=== PATIENT | male | born 1960 | race Two or more races ===

== ENCOUNTER 2024-04-20 10:01 | Outpatient (AMB) | payer MEDICAID, SELFPAY ==
--- NOTE | 2024-04-20 10:55 | A.OFFVIS_ITS ---
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
== END 2024-04-20 11:49 | disposition home or self-care (01) ==
PROVIDERS: PCP Registered Nurse; Visit Provider Urology
DX: Z13.9 Encounter for screening, unspecified (principal)

== ENCOUNTER → 2024-04-20 10:01 | Outpatient (BNVA) | payer MEDICAID, SELFPAY | PROVIDERS: PCP Registered Nurse; Visit Provider Urology | DX: N43.3 Hydrocele, unspecified (principal) | CPT/HCPCS: 81003; 99202 ==

== ENCOUNTER 2024-06-14 08:07 | Day surgery (SDC) | payer MEDICAID, SELFPAY ==
[2024-06-10 09:48] VITALS: BMI 21.1
--- NOTE | 2024-06-11 10:07 | HO.ANESPROP2 ---
HPI - Anesthesia Eval Consult details Narrative: 63yo M for Bilateral Hydrocele Repair, Excision Penial Cyst PMFSH Active Problems Active Problems: All Active Problems Hydrocele in adult (Acute) Past Medical History Medical History (Updated 04/22/24 @ 22:07 by Lalo Farias MD) Depression with anxiety Heroin use disorder, mild, in sustained remission Chronic low back pain Recurrent major depressive disorder Chronic pain in testicle Surgical History Surgical History (Updated 06/10/24 @ 09:48 by Jaan Herrera RN) Surgical history unknown Meds Allergies Allergy/AdvReac Type Severity Reaction Status Date / Time No Known Allergies Allergy Verified 04/20/24 10:55 Home Medications ?Medication ?Instructions ?Recorded ?Confirmed ?Last Taken ?Type albuterol sulfate 90 mcg/actuation 2 puff inhalation Q4H PRN dyspnea 04/14/24 06/10/24 Unknown History aerosol inhaler (Ventolin HFA) budesonide-formoterol HFA 80 2 puff inhalation DAILY 04/14/24 06/10/24 Unknown History mcg-4.5 mcg/actuation aerosol inhaler (Symbicort) cetirizine 10 mg tablet 10 mg PO DAILY 04/14/24 06/10/24 Unknown History cyclobenzaprine 10 mg tablet 10 mg PO TID PRN muscle spasm 04/14/24 06/10/24 Unknown History duloxetine 30 mg capsule,delayed 30 mg PO DAILY 04/14/24 06/10/24 Unknown History release montelukast 10 mg tablet 10 mg PO BEDTIME 04/14/24 06/10/24 Unknown History multivitamin 1 tab PO DAILY 04/14/24 06/10/24 Unknown History trazodone 150 mg tablet 150 mg PO BEDTIME 04/14/24 06/10/24 Unknown History Exam Height,Weight and Vital Signs: Height 5 ft 9 in Weight 64.864 kg Assessment and Plan Assessment Anesthesia Assessment: Chart Reviewed
--- NOTE | 2024-06-14 08:32 | HO.ANESPROP2 ---
[facility] Active Problems Active Problems: All Active Problems Hydrocele in adult (Acute) Past Medical History Medical History Depression with anxiety Heroin use disorder, mild, in sustained remission Chronic low back pain Recurrent major depressive disorder Chronic pain in testicle Functional capacity: independent ambulation Surgical History Surgical History Surgical history unknown Social History Social History Advance Directives: No Advance Directives Information Provided: Yes Meds Allergies Allergy/AdvReac Type Severity Reaction Status Date / Time No Known Allergies Allergy Verified 04/20/24 10:55 Active Medications: Current Medications Lactated Ringer's (Lr) 1,000 mls @ 100 mls/hr IVCONT .Q10H SAMANTHA Home Medications ?Medication ?Instructions ?Recorded ?Confirmed ?Last Taken ?Type albuterol sulfate 90 mcg/actuation 2 puff inhalation Q4H PRN dyspnea 04/14/24 06/10/24 Unknown History aerosol inhaler (Ventolin HFA) budesonide-formoterol HFA 80 2 puff inhalation DAILY 04/14/24 06/10/24 Unknown History mcg-4.5 mcg/actuation aerosol inhaler (Symbicort) cetirizine 10 mg tablet 10 mg PO DAILY 04/14/24 06/10/24 Unknown History cyclobenzaprine 10 mg tablet 10 mg PO TID PRN muscle spasm 04/14/24 06/10/24 Unknown History duloxetine 30 mg capsule,delayed 30 mg PO DAILY 04/14/24 06/10/24 Unknown History release montelukast 10 mg tablet 10 mg PO BEDTIME 04/14/24 06/10/24 Unknown History multivitamin 1 tab PO DAILY 04/14/24 06/10/24 Unknown History trazodone 150 mg tablet 150 mg PO BEDTIME 04/14/24 06/10/24 Unknown History Exam Height,Weight and Vital Signs: Height 5 ft 9 in Weight 64.864 kg
--- NOTE | 2024-06-14 08:37 | HO.ANESPROP2 ---
[facility] Active Problems Active Problems: All Active Problems Hydrocele in adult (Acute) Past Medical History Medical History Depression with anxiety Heroin use disorder, mild, in sustained remission Chronic low back pain Recurrent major depressive disorder Chronic pain in testicle Functional capacity: independent ambulation Family History Family history of problems with anesthesia: No Surgical History Surgical History Surgical history unknown History of Problems with Anesthesia: Unobtainable Social History Social History Household Members Other:: I live in a room in a house Are you a primary critical care specialist to a significant other at home: No Do you presently have visiting nurse or other home services: No Patient Tobacco Use Status: Former Tobacco user Meds Allergies Allergy/AdvReac Type Severity Reaction Status Date / Time No Known Allergies Allergy Verified 04/20/24 10:55 Active Medications: Current Medications Lactated Ringer's (Lr) 1,000 mls @ 100 mls/hr IVCONT .Q10H SAMANTHA Home Medications ?Medication ?Instructions ?Recorded ?Confirmed ?Last Taken ?Type albuterol sulfate 90 mcg/actuation 2 puff inhalation Q4H PRN dyspnea 04/14/24 06/10/24 Unknown History aerosol inhaler (Ventolin HFA) budesonide-formoterol HFA 80 2 puff inhalation DAILY 04/14/24 06/10/24 Unknown History mcg-4.5 mcg/actuation aerosol inhaler (Symbicort) cetirizine 10 mg tablet 10 mg PO DAILY 04/14/24 06/10/24 Unknown History cyclobenzaprine 10 mg tablet 10 mg PO TID PRN muscle spasm 04/14/24 06/10/24 Unknown History duloxetine 30 mg capsule,delayed 30 mg PO DAILY 04/14/24 06/10/24 Unknown History release montelukast 10 mg tablet 10 mg PO BEDTIME 04/14/24 06/10/24 Unknown History multivitamin 1 tab PO DAILY 04/14/24 06/10/24 Unknown History trazodone 150 mg tablet 150 mg PO BEDTIME 04/14/24 06/10/24 Unknown History Exam Height,Weight and Vital Signs: Height 5 ft 9 in Weight 64.864 kg Airway Mallampati Class: II TM Dist: >3cm Neck ROM: Full Denture: Upper and Lower Heart: RRR Lungs: CTA Assessment and Plan Assessment Anesthesia Assessment: Anesthesia Plan Discussed and Chart Reviewed Final Anesthetic Review Family History of Problems with Anesthesia: No History of Problems with Anesthesia: Unobtainable NPO: Yes ASA Class: II Final Preanesthetic Review: Meds/Allgs Chart Reviewed, Consent Obtained/Reviewed and Anes Risks/Benef Reviewed Patient Risk: Intermediate Procedure Risk: Intermediate Anesthetic Plan Anesthetic Plan: GA Disposition: Standard PACU
[2024-06-14 08:45] LABS: Amphetamine Screen Urine Not Detected (Not Detect); Barbiturates, Urine Not Detected (Not Detect); Benzodiazepines Screen Urine Not Detected (Not Detect); Buprenorphine Scr Not Detected (Not Detect); Cannabinoid Screen Urine Not Detected (Not Detect); Cocaine Screen Urine Not Detected (Not Detect); Fentanyl, urine Not Detected (Not Detect); Methadone Screen, Urine Not Detected (Not Detect); Opiate Screen Urine Not Detected (Not Detect); Oxycodone Screen Urine Not Detected (Not Detect); Phencyclidine Screen Urine Not Detected (Not Detect)
[2024-06-14 08:50] VITALS: BMI 20.4
[2024-06-14 08:56] LABS: Appearance Urine Hazy; Color Urine DK YELLOW; Leukocyte Esterase Urine Negative (Negative); PH 5.5 (5.0-9.0); Specific Gravity - Urine 1.025 (1.005-1.025); UMIC TRIGGER UA YES; Urine Blood Moderate (2+) (Negative); Urine Protein 30 (1+) mg/dL (Neg-Trace)
[2024-06-14] MEDS: Lactated Ringers 1,000 ML 100 ML IVCONT (08:58)
[2024-06-14 09:06] VITALS: BP 126/77; PULSE 87; RESP 18; TEMP 36.6; O2SAT 96
[2024-06-14 09:14] LABS: Bacteria Urine None Seen (None Seen); Squamous Epithelial Cell Urine 0-2 /HPF (0-2); WBC Urine 0-5 /HPF (0-5)
[2024-06-14 09:15] LABS: Hyaline Casts Urine 0-2 /LPF (0-2)
--- NOTE | 2024-06-14 09:40 | MHC.SHP ---
Pre-Procedural Eval Section A - 24 Hr Update-Section A only Date of Service: 06/14/24 The patient is an INPATIENT: No Changes since office visit: No Cold of Flu in the past 2 weeks, No New Medical Problems, No Changes in Medication and No Patient answered all questions The patient has been examined within 24 hours of the surgical procedure. The History & Physical has been completed within 30 days and I have reviewed it.: No Section B - Complete if H&P > 30 days Chief Complaint: Benign cyst of prepuce,hydocele repair Details of Present Illness: Bilateral hydroceles, benign cyst of penile foreskin Relevant Social History: None Present Medications: see Short Stay Collaborative assessment Medical History: No relevant PMH History of Previous Operations: No relevant previous surgery Allergies: Allergies Allergy/AdvReac Type Severity Reaction Status Date / Time No Known Allergies Allergy Verified 04/20/24 10:55 Review of Systems Sugical H&P ROS: Negative: Constitution, Cardiovascular, Respiratory, Neurological, Psychiatric, Hem-Onc, Allergic/Immunologic, Gastrointestinal, Genitourinary, Musculoskeletal, Integumentary, Endocrine and Eyes/Ears/Nose/Throat Exam Surgical H&P Exam: Normal: HEENT, Normal: Heart, Normal: Lungs, Normal: Extremities, Normal: Abdomen, Normal: Skin and Normal: Neurological Plan Diagnosis/Plan: Unchanged (bilateral hydroceles) I have reviewed the history and physical and performed a pertinent physical examination on my patient. No changes have occurred unless specified. Time Spent With Patient Time: Total time managing care of this patient today ____ minutes.
--- NOTE | 2024-06-14 10:48 | W.PM.OPN ---
Operative Note Operative Note Date of Service: 06/14/24 Narrative: PreOperative Diagnosis: Bilateral hydrocele with prepuce penile cyst Post Operative Diagnosis: Above Procedure: Bilateral Hydrocelectomy and removal of foreskin penile cyst Surgeon: Dr Lalo Farias Anesthesia: General Indications for procedure: Bilateral hydrocele with persistent discomfort. Foreskin penile cyst with difficulty retracting Procedure: After informed consent was verified the patient was brought to the operating room and placed in a supine position. Anesthesia was administered per protocol. Patient was appropriately shaved and genitals were prepped and draped in sterile fashion. Safety pause time-out was performed. Antibiotics being given. Local anesthetic was infiltrated under the skin in a vertical fashion on the median raphe of the scrotum. Bilateral testicular block performed. Skin incision was made using a blade through the subdermal layer. Using Allis clamps dissection was performed to the level of the tunica of the left testicle. The tunica around the testicle was elevated and dissected free from surrounding tissue. The avascular plane around the tunica was entered and using a wet sponge blunt dissection was performed. Any small bleeding perforators were cauterized. 3-0 Vicryl was used to create stay sutures and elevate the tunica. The tunica was opened in a longitudinal fashion.. Fluid was removed with suction proximally 200 cc. The testicle sac was elevated. Excess thickened sac was dissected and removed using a LigaSure cautery instrument to minimize porst procedure bleeding. Skin edges of the tunica were cauterized carefully in order to try to minimize postprocedure hematoma. Small accessory appendices were removed from the head of epididymis. The testicle with resected sac was placed back into a dependent portion of the scrotum. Overlying skin fascia layer was closed with a running 3-0 Vicryl suture. Using Allis clamps dissection was performed to the level of the tunica of the right testicle. The tunica around the testicle was elevated and dissected free from surrounding tissue. The avascular plane around the tunica was entered and using a wet sponge blunt dissection was performed. Any small bleeding perforators were cauterized. 3-0 Vicryl was used to create stay sutures and elevate the tunica. The tunica was opened in a longitudinal fashion.. Fluid was removed with suction proximally 200 cc. The testicle sac was elevated. Excess thickened sac was dissected and removed using a LigaSure cautery instrument to minimize porst procedure bleeding. Skin edges of the tunica were cauterized carefully in order to try to minimize postprocedure hematoma. The testicle with resected sac was placed back into a dependent portion of the scrotum. Overlying skin fascia layer was closed with a running 3-0 Vicryl suture. Skin was closed with interrupted 3-0 chromic sutures. Attention was directed to the prepuce of the penis. A 1.5 cm subdermal cyst was present on the left edge of the foreskin. This was elevated and dissected free using a combination of Bovie cautery and sharp dissection. The skin defect was then closed with multiple interrupted 4-0 chromic sutures. Soft fluff sponges were placed with mesh pants as dressing. Local anesthetic was placed in inguinal cord for post procedure pain relief. Patient tolerated procedure well was extubated in operating room transferred in stable condition to the recovery area Pathology: Hydrocele sac bilateral, foreskin cyst Drains: []
[2024-06-14 10:51] VITALS: BP 125/68; PULSE 79; RESP 16; TEMP 36.4; O2SAT 100
[2024-06-14 10:56] VITALS: BP 130/82; PULSE 85; RESP 16; O2SAT 97
[2024-06-14 11:01] VITALS: BP 125/75; PULSE 89; RESP 16; O2SAT 96
[2024-06-14 11:06] VITALS: BP 123/78; PULSE 90; RESP 16; O2SAT 96
[2024-06-14 11:21] VITALS: BP 120/69; PULSE 87; RESP 18; TEMP 36.3; O2SAT 98
--- NOTE | 2024-06-14 13:01 | HO.POSTANES ---
Post Anesthesia Evaluation Post Anesthesia Evaluation Date of Service: 06/14/24 Vital Signs: Vital Signs Temp Pulse Resp BP Pulse Ox O2 Del Method 06/14/24 11:21 97.4 F 87 18 120/69 98 Room Air 06/14/24 11:06 90 16 123/78 96 Room Air 06/14/24 11:01 89 16 125/75 96 Room Air 06/14/24 10:56 85 16 130/82 97 Room Air 06/14/24 10:51 97.5 F 79 16 125/68 100 Room Air 06/14/24 09:06 97.9 F 87 18 126/77 96 Room Air Anesthesia: General LMA Mental Status: Awake Pain Control: Satisfactory Nausea/Vomiting: None Hydration: Adequate Anesthesia-Related Issues: No Anes. Related Issues
== END 2024-06-14 12:17 | disposition home or self-care (01) ==
PROVIDERS: Nurse Practitioner; Visit Provider Urology
PROC: (CPT 55060; principal; 2024-06-14 09:50)
PROC: (CPT 55041; 2024-06-14 09:50)
DX: N43.3 Hydrocele, unspecified (principal); N47.4 Benign cyst of prepuce; G89.29 Other chronic pain; N50.82 Scrotal pain; N50.812 Left testicular pain; N50.811 Right testicular pain; M54.50 Low back pain, unspecified; F11.91 Opioid use, unspecified, in remission; F33.9 Major depressive disorder, recurrent, unspecified; F41.8 Other specified anxiety disorders
CPT/HCPCS: 55041; 54060; 80307; 81001; 88302; 88304; J0131; J0690; J1100; J2003; J2250; J2405; J2704; J2795; J3010

== ENCOUNTER → 2024-06-14 08:07 | Outpatient (BNV) | payer MEDICAID, SELFPAY | PROVIDERS: Visit Provider Urology | DX: N43.3 Hydrocele, unspecified (principal); N47.4 Benign cyst of prepuce | CPT/HCPCS: 54100; 55041 ==

== ENCOUNTER 2024-07-01 10:36 | Outpatient (AMB) | payer MEDICAID, SELFPAY ==
--- NOTE | 2024-07-01 10:41 | MHC.OFFVIS ---
Intake Visit Reasons: BI hydrocelectomy, excision of penile cyst- F/U Intake Note: Patient is present for BI HYDROCELECTOMY, EXCISION OF PENILE CYST F/U Urology Medication:NONE Antibiotic Allergy:NONE Blood Thinner:NONE Border Measurer Required: No Allergies No Known Allergies Allergy (Verified 07/01/24 10:43) HPI Comments Details: Dieter is a pleasant male. He is a patient of . He seen for the following urologic conditions - bilateral hydroceles Two week post bilateral hydrocelectomy follow-up Had cyst in the foreskin which was also removed Healing well Recommend thin coat Aquaphor twice a day Bilateral hydrocele Significant Required drains Mucinous foreskin cyst Excised [facility] Medical History Depression with anxiety Heroin use disorder, mild, in sustained remission Chronic low back pain Recurrent major depressive disorder Chronic pain in testicle Surgical History Surgical history unknown Social History Household Members Other:: I live in a room in a house Are you a primary nursing care attendant to a significant other at home: No Do you presently have visiting nurse or other home services: No Patient Tobacco Use Status: Former Tobacco user Review of Systems Const Denies chills and Denies fever(s) Card Reports no additional complaints and Denies syncope Resp Denies cough GI Denies abdominal pain and Denies heartburn Reports as per HPI and Denies change in libido Neuro Denies syncope Psych Denies change in libido Endo Denies change in libido Physical Exam Const General: cooperative, healthy appearing, comfortable and no acute distress Orientation/consciousness: patient oriented x3 HEENT Face and sinus: Yes normal facial exam Mouth: moist mucous membranes Neck Neck: Yes normal visual inspection, Yes full ROM and Yes trachea midline Chest Chest palpation & inspection: normal inspection of the chest Resp Effort & Inspection: normal respiratory effort, able to speak in complete sentences and no respiratory distress GI Inspection: Yes normal to inspection Back/Spine/Pelvis Cervical Spine: normal cervical lordosis Thoracic/Lumbar Spine: thoracic and lumbar spine normal to inspection Skin General skin exam: no rashes or lesions noted Neuro General: patient oriented x3, gait normal, tone normal and moves all extremities Extrem General: Yes normal to inspection and Yes capillary refill normal Assessment & Plan Assessment & Plan (1) Foreskin problem: Code(s): N47.8 - Other disorders of prepuce Category: Medical (2) Hydrocele in adult: Code(s): N43.3 - Hydrocele, unspecified Category: Medical Plan Healing well Six-month follow-up Patient Instructions: This note is constructed using voice recognition software. While every effort has been made to ensure accuracy bobtail driver errors may have been included. Imaging studies, laboratory and physical exam results were discussed and reviewed in detail. No major barriers to patient understanding were identified. An opportunity to ask questions regarding the treatment plan was provided. All questions were answered. The patient expressed understanding and agreement with the above treatment plan. The patient is aware they should contact our office by phone for worsening of their current condition or the appearance of new urologic symptoms. Compliance is encouraged with any medications and followup testing that is ordered. It is a privilege to participate in the urologic care of your patient. If you have any questions or concerns regarding treatment for the above conditions, or other urologic issues, please do not hesitate to contact me. The office telephone contact is [phone]. Sincerely, Dr Lalo Farias MD, [facility] - Urology Compassionate Specialist Care for the Genitourinary System Coding Level of Care Code Global (25148) Diagnoses Foreskin problem N47.8 Hydrocele in adult N43.3
--- OUTSIDE RECORDS SUMMARY | 2024-07-01 12:30 | XMS_ITS | Clinical Summary ---
Author Organization [facility] Address [address] [place] [address] Care Team Providers Care Boiler Installer Name Role Phone Tim Mendosa TITLE 1 TUTOR-C Primary Care Provider [phone] Source Comments PLEASE NOTE, if this patient is a minor, it may be UNLAWFUL to discuss sensitive information that is contained in these records (such as FAMILY PLANNING, MENTAL HEALTH or SUBSTANCE ABUSE) with the minor patient's parent or other person without the patient's specific authorization.[facility] Allergies No known active allergies Medications multivitamin tabletIndication s:Lack of appetite Take 1 Tablet by mouth once daily 30 Tablet 3 3 Active cetirizine (ZYRTEC) 10 mg tabletIndication s:Moderate persistent asthma, unspecified whether complicated Take 1 Tablet by mouth once daily 90 Tablet 1 4 Active montelukast (SINGULAIR) 10 mg tabletIndication s:Moderate persistent asthma, unspecified whether complicated Take 1 Tablet by mouth nightly at bedtime 90 Tablet 4 Active albuterol HFA 90 mcg/actuation inhalerIndicatio ns:Moderate persistent asthma, unspecified whether complicated Inhale 2 Puffs into the lungs every 4 (four) hours as needed for shortness of breath 18 g 2 4 Active budesonide-formo teroL (SYMBICORT) 80-4.5 mcg/actuation inhalerIndicatio ns:Moderate persistent asthma, unspecified whether complicated Inhale 2 Puffs into the lungs daily. 10.2 g 2 4 Active busPIRone (BUSPAR) 5 mg tabletIndication s:Depression with anxiety Take 1 Tablet by mouth 3 (three) times daily 90 Tablet 3 4 Active DULoxetine (CYMBALTA) [address] capsuleIndicatio ns:Depression with anxiety,Chronic midline low back pain with bilateral sciatica Take 1 Capsule by mouth once daily 30 Capsule 3 4 Active cyclobenzaprine (FLEXERIL) 10 mg tabletIndication s:Chronic midline low back pain with bilateral sciatica Take 1 Tablet by mouth 3 (three) times daily as needed for muscle spasms 90 Tablet 2 4 Active naproxen (NAPROSYN) 500 mg tabletIndication s:Chronic midline low back pain with bilateral sciatica Take 1 Tablet by mouth 2 (two) times daily with a meal 60 Tablet 3 4 Active gabapentin (NEURONTIN) 300 mg capsuleIndicatio ns:Chronic midline low back pain with bilateral sciatica Take 1 Capsule by mouth 3 (three) times daily 90 Capsule 2 4 Active traZODone (DESYREL) 150 mg tabletIndication s:Depression with anxiety,Primary insomnia Take 1 Tablet by mouth nightly at bedtime 30 Tablet 2 5 Active Active Problems Problem Noted Date Diagnosed Date Depression with anxiety 11/28/2023 Heroin use disorder, mild, in sustained remissio n ([place]) 09/25/2021 Overview (09/25/2021): Last use 2000 per pt Homeless 09/25/2021 Overview (09/25/2021): currently living with daughter and granddaughter Chronic low back pain 03/06/2021 Major depressive disorder, r ecurrent episode, moderate ([place]) 01/03/2020 Recurrent major depressive disorder, in remissio n ([place]) 11/17/2019 Resolved Problems Problem Noted Date Diagnosed Date Resolved Date Smokes less than 1/2 pack per day 11/17/2019 11/28/2023 Encounters Date Type Department Care Team Description 05/06/2024 Interim Notes [address] [phone] Tim Mendosa, TITLE 1 TUTOR-C Depression with anxiety; Primary insomnia 04/22/2024 2:00 PM EST Office Visit [address] [phone] Tim Mendosa, TITLE 1 TUTOR-Isabel Brewster Chronic midline low back pain with bilateral sciatica 04/22/2024 Travel from Last 3 Months Immunizations Name Administration Dates Next Due PFIZER COVID VACCINE, PURPLE CAP, 12+ 10/20/2020 ,09/29/2020 TDAP 10/24/2019 Family History Medical History Relation Name Comments Other Brother 9 nerve issues? Heart Problems Father had pacemaker Heart Problems Mother heart valve adeola irwin, at age 46 Memory Loss Mother Relation Name Status Comments Brother 9 Alive Father Mother Social History Tobacco Use Types Packs/Day Years Used Date Smoking Tobacco: Former Cigarettes Smokeless Tobacco: Never Comments:3 per day Alcohol Use Standard Drinks/Week Comments Not Currently 0 (1 standard drink = 0.6 oz pur e alcohol) some times Social Connections Answer Date Recorded Connectedness 1 02/17/2024 Financial Resource Strain Answer Date R ecorded Financial Resource Strain 2 2023 Stress Answer Date Recorded Stress 2 02/17/2024 Physical Activity Answer Date Recorded Physical Activity 0 04/16/2022 Food Insecurity Answer Date Recorded Food 1 02/17/2024 Transportation Needs Answer Date Record ed Transportation 1 02/17/2024 Housing Stability Answer Date Recorded Housing 2 02/17/2024 Safety and Environment Answer Date Marcos rded Safety 0 10/28/2022 Utilities Answer Date Recorded Utilities 2 02/17/2024 Employment Answer Date Recorded Stress 0 04/16/2022 Sex and Gender Information Value Date Recorded Sex Assigned at Male 03/06/2021 7:10 AM PDT Legal Sex Male 7:47 AM PST Gender Identity Male 03/06/2021 7:10 AM PDT Sexual Orientation Straight 03/06/2021 7: 10 AM PDT Occupation Industry Job Start Date Job End Date on SSI due to depression Not on file Not on file Not on file Last Filed Vital Signs Vital Sign Reading Time Taken Comments Blood Pressure 124/86 04/22/2024 1:58 PM EST Pulse 92 04/22/2024 1:58 PM EST Temperature 36.7 ??C (98.1 ??F) 04/22/2024 1:58 PM ES T Respiratory Rate 18 04/22/2024 1:58 PM EST Oxygen Saturation 97% 02/18/2024 9:22 AM EDT Inhaled Oxygen Concentration - - Weight 64.9 kg (143 lb) 04/22/2024 1:58 PM EST Height 175.3 cm (5' 9 ) 04/22/2024 1:58 PM EST Body Mass Index 21.12 04/22/2024 1:58 PM EST Plan of Treatment Upcoming Encounters Date Type Department Care Team (Late st Contact Info) Description 07/23/2024 5:20 PM EDT Telemedicine Visit [facility] [address] [place] [address] Tim Mendosa, TITLE 1 TUTOR-Kyra [address] [place] [address] Health Maintenance Due Date Last Done Comments CT Colonography 08/19/2004 Colonoscopy 08/19/2004 FIT/gFOBT 08/19/2004 Fecal DNA 08/19/2004 Flexible Sigmoidoscopy 08/19/2004 Alcohol and Drug Screen 05/05/2024 04/22/20 24, 08/01/2023, 01/31/2023, Additional history exists Depression Monitoring 07/21/2024 04/22/2024 , 08/01/2023, 01/31/2023, Additional history exists Imm-Pneumococcal (1 of 2 - PCV) 07/21/2024 Postponed from 08/19/1978 (Patient postponement) Imm-Zoster, Recombinant (1 of 2) 07/21/2024 Postponed from 08/19/2009 (Patient postponement) [id number] ( season) 2024 11/10/2020, 10/20/2020, 09/29/2020 Postponed from 01/04/2024 (Patient postponement) Colorectal Cancer Screening 11/02/2024 Postponed from 08/19/2004 (Patient postponement) Annual Preventive Care Visit 11/27/2024 11/28/2023, 10/28/2022, 03/06/2021 Diabetes Screening 11/27/2024 11/28/2023, 0 11/28/2023, 10/28/2022, Additional history exists Imm-Hepatitis A (1 of 2 - Risk 2-dose series) 11/27/2024 Postponed from 08/19/1978 (Patient postponement) Tobacco Screening 11/27/2024 11/28/2023, , 01/31/2023, Additional history exists Hypertension Screening (#1) 04/22/2025 Lipid Screening 11/27/2028 11/28/2023, 10/28/2022 Imm-DTaP/Tdap/Td (2 - Td or Tdap) 10/23/2029 10/24/2019 HIV Screening Completed 10/28/2022 Hepatitis C Screening Completed 10/28/2022 Imm-Influenza Discontinued Procedures Procedure Name Priority Date/Time Associated Diagnosis Comments HEMOGLOBIN GLYCOSYLATED A1C Routine 11/28/2023 1:39 PM EDT Routine general medical examination at a health care facility LIPID PANEL Routine 11/28/2023 1:39 PM EDT Routine general medical examination at a main campus medical center care facility HIV 1/2 AG & AB W/RFLX (4TH GEN) Routine 10/28/2022 4:23 PM EDT Routine general medical examination at a health care facility HEPATITIS C AB W/RFLX HCV RNA, QT, RT PCR Routine 10/28/2022 4:23 PM EDT Routine general medical examination at a health care facility from Last 3 Months or Most Recently Relevant to Health Maintenance Results * (ABNORMAL) HEMOGLOBIN GLYCOSYLATED A1C (11/28/2023 1:39 PM EDT) HEMOGLOBIN A1C 5.9(H) <5.7 % of total Hgb [facility] Comment: For someone without known diabetes, a hemoglobin A1c value between 5.7% and 6.4% is consistent with prediabetes and should be confirmed with a follow-up test. For someone with known diabetes, a value <7% indicates that their diabetes is well controlled. A1c targets should be individualized based on duration of diabetes, age, comorbid conditions, and other considerations. This assay result is consistent with an increased risk of diabetes. Currently, no consensus exists regarding use of hemoglobin A1c for diagnosis of diabetes for children. Blood Blood / Unknown 11/28/2023 1 :39 PM EDT 11/28/2023 1:40 PM EDT Narrative [facility] - 11/29/2023 10:38 AM EDT FASTING:UNKNOWN Tim Mendosa TITLE 1 TUTOR-C LAB - BLOOD DRAW Edited R esult - Final [facility] [address] [address], [facility] [address] [address] * (ABNORMAL) LIPID PANEL (11/28/2023 1:39 PM EDT) [facility] CHOLESTEROL, TOTAL 213(H) <200 mg/dL [facility] HDL CHOLESTEROL 49 > OR = 40 mg/dL [facility] TRIGLYCERIDES 162(H) <150 mg/dL [facility] LDL-CHOLESTEROL 134(H) 99 mg/dL (calc) [facility] Comment: Reference range: <100 Desirable range <100 mg/dL for primary prevention; ?? <70 mg/dL for patients with CHD or diabetic patients with > or = 2 CHD risk factors. LDL-C is now calculated using the Lb-Kerwin calculation, which is a validated novel method providing better accuracy than the Friedewald equation in the estimation of LDL-C. Lb SS et al. ANJEL. 2013;310(19): 8387-0976 (http://education.Deposco/faq/UBE084) CHOL/HDLC RATIO 4.3 <5.0 (calc) [facility] NON-HDL CHOLESTEROL 164(H) <130 mg/dL (calc) [facility] Comment: For patients with diabetes plus 1 major ASCVD risk factor, treating to a non-HDL-C goal of <100 mg/dL (LDL-C of <70 mg/dL) is considered a therapeutic option. Blood Blood / Unknown 11/28/2023 1 :39 PM EDT 11/28/2023 1:40 PM EDT Narrative [facility] - 11/29/2023 10:38 AM EDT FASTING:UNKNOWN Tim JANEP-C LAB - BLOOD DRAW Final Re sult Performing Organization Address [facility] Co de Phone Number [facility] [address] [address], [facility] [employer] [address] [address] * HEPATITIS C AB W/RFLX HCV RNA, QT, RT PCR (10/28/2022 4:23 PM EDT) HEPATITIS C ANTIBODY NON-REACT EDEN NON-REACT EDEN [facility] Comment: HCV antibody was non-reactive. There is no laboratory evidence of HCV infection. In most cases, no further action is required. However, if recent HCV exposure is suspected, a test for HCV RNA (test code 44293) is suggested. For additional information please refer to http://education.Grovac/faq/LLJ68h1 (This link is being provided for informational/ educational purposes only.) Blood Blood / Unknown 10/28/2022 4 :23 PM EDT 10/28/2022 4:24 PM EDT Narrative [facility] - 10/29/2022 7:13 AM EDT PATIENT UNABLE TO VOID; ADVISED TO RETURN FOR COLLECTION. Tim Mendosa [facility] LAB - BLOOD DRAW Edited R esult - Final Performing Organization Address [facility] Co de Phone Number [facility] [address] [address], [facility] [address] [address] * HIV 1/2 AG & AB W/RFLX (4TH GEN) (10/28/2022 4:23 PM EDT) HIV AG/AB, 4TH GEN NON-REAC TIVE NON-REAC TIVE [facility] Comment: HIV-1 antigen and HIV-1/HIV-2 antibodies were not detected. There is no laboratory evidence of HIV infection. PLEASE NOTE: This information has been disclosed to you from records whose confidentiality may be protected by state law. ??If your state requires such protection, then the state law prohibits you from making any further disclosure of the information without the specific written consent of the person to whom it pertains, or as otherwise permitted by law. A general authorization for the release of medical or other information is NOT sufficient for this purpose. ?? For additional information please refer to http://education.Grovac/faq/EFV400 (This link is being provided for informational/ educational purposes only.) The performance of this assay has not been clinically validated in patients less than 2 years old. Blood Blood / Unknown 10/28/2022 4 :23 PM EDT 10/28/2022 4:24 PM EDT Narrative [facility] - 10/29/2022 7:13 AM EDT PATIENT UNABLE TO VOID; ADVISED TO RETURN FOR COLLECTION. us Tim SALES-Kyra LAB - BLOOD DRAW Final Re sult [facility] [address] [address], [facility] [address] [place] [phone] from Last 3 Months or Most Recently Relevant to Health Maintenance Insurance [facility] Care Teams Boiler Installer Relationship Specialty Start Date End Date Tim Mendosa FNP-C [address] [place] [address] PCP - General Internal Medicine 10/25/22
== END 2024-07-01 11:12 | disposition home or self-care (01) ==
PROVIDERS: PCP Registered Nurse; Visit Provider Urology
DX: N47.8 Other disorders of prepuce (principal); N43.3 Hydrocele, unspecified
CPT/HCPCS: 99024

== ENCOUNTER → 2024-07-01 10:36 | Outpatient (BNVA) | payer MEDICAID, SELFPAY | PROVIDERS: PCP Registered Nurse; Visit Provider Urology | DX: N47.8 Other disorders of prepuce (principal); N43.3 Hydrocele, unspecified | CPT/HCPCS: 99212 ==